=== PATIENT | female | born 1965 | race Caucasian/White ===

== ENCOUNTER 2018-02-07 16:33 | Emergency (ER) | payer OTHER ==
[~2018-02-07] VITALS: Ht 157.5 cm; Wt 72.6 kg
[~2018-02-07 16:33] MED LIST: FLEXERIL10 MG PO; PERCOCET 325 MG1 TA2 PO
[2018-02-07 17:06] LABS: ABSOLUTE BASOPHIL COUNT 0 /CUMM (0.0-0.2); ABSOLUTE EOSINOPHIL COUNT 0 /CUMM (0.0-0.7); ABSOLUTE GRANULOCYTE CT 21.1 /CUMM (1.4-6.5); ABSOLUTE LYMPH COUNT 1.4 /CUMM (1.2-3.4); ABSOLUTE MONOCYTE COUNT 0.5 /CUMM (0.10-0.60); BASOPHIL % 0.2 % (0.0-2.0); EOSINOPHIL % 0.1 % (0-5); GRANULOCYTE % 91.4 % (42.2-75.2); HEMATOCRIT 39.2 % (37-47); MEAN CORPUSCULAR HGB 29.5 PG (27.0-31.0); MEAN CORPUSCULAR HGB CONC 33.5 G/DL (33.0-37.0); MEAN CORPUSCULAR VOLUME 88.1 FL (81.0-99.0); PLATELET COUNT 303 /CUMM (130-400); RBC DISTRIBUTION WIDTH 14.3 % (11.5-14.5); RED BLOOD CELL CT 4.45 /CUMM (4.20-5.40); WHITE BLOOD CELL COUNT 23.1 /CUMM (4.8-10.8)
--- NOTE | 2018-02-07 18:01 | RADIOLOGY REPORT ---
EXAMINATION: XR CHEST CLINICAL INFORMATION: Fever and cough COMPARISON: Chest x-ray 04/13/2010 TECHNIQUE: 2 views of the chest were obtained. FINDINGS: Symmetric lung inflation. There is no focal consolidation, pleural effusion, or pneumothorax. Increased prominence of the interstitium with peribronchial thickening that can be seen in the setting of atypical/viral pneumonia. Cardiac silhouette size is normal. There are no acute osseous findings. Mild thoracic spondylosis. IMPRESSION: Increased prominence of the interstitium with peribronchial thickening that can be seen in the setting of atypical/viral pneumonia.
--- NOTE | 2018-02-07 18:42 | ED DYSPNEA/ASTHMA COMPLAINT ---
History of Present Illness General Chief Complaint: General Adult Stated Complaint: SENT IN BY MD FOR FEVER AND DEHYDRATION Source: patient Exam Limitations: no limitations Vital Signs & Intake/Output Vital Signs & Intake/Output Vital Signs Date Time Temp Pulse Resp B/P B/P Pulse O2 O2 Flow FiO2 Mean Ox Delivery Rate 02/07 2223 98.0 92 18 104/49 98 Room Air 02/07 2025 99.0 99 18 108/58 94 Room Air 02/07 2002 95 02/07 1833 98.8 102 20 100/47 94 Room Air 02/07 1648 101.3 02/07 1638 101.3 115 15 113/73 96 Room Air Room Air ED Intake and Output 02/08 0000 02/07 1200 Intake Total 2250 Output Total 0 Balance 2250 Intake, IV 2250 Intake, Oral 0 Output, Urine 0 Patient 160 lb Weight Weight Reported by Patient Measurement Method Allergies Coded Allergies: MDX - Erythromycin (ERYTHROMYCIN) (N/V ITCHING 02/07/18) Reconcile Medications Albuterol Sulfate (Proair Hfa) 90 MCG HFA.AER.AD 2 PUF INH Q4-6 PRN PRN COUIGH /SOB Codeine Phosphate/Guaifenesi (Cheratussin AC Syrup) 10 MG-100 MG/5 ML LIQUID 10 ML PO Q6H PRN COUGH CYCLOBENZAPRINE HCL (Flexeril) 10 MG TABLET 1 TAB PO TID PRN PAIN Ibuprofen 800 MG TABLET 1 TAB PO TID PRN PAIN/FEVER Levofloxacin (Levaquin) 750 MG TABLET 1 TAB PO DAILY PNA OXYCODONE HCL/ACETAMINOPHEN (Percocet 5-325 MG Tablet) 325 MG/5 MG TAB 1-2 TAB PO Q4-6 PRN PRN PAIN Triage Note: PT SENT TO ED BY DR. MIR FOR PNEUMONIA WORK UP. PT HAS BEEN SICK X 2 WEEKS. TESTED POSITIVE FOR STREP THROAT AT OFFICE. PRODUCTIVE COUGH WITH YELLOW/GREEN PHLEGM. Triage Nurses Notes Reviewed? yes Onset: Gradual Duration: week(s): (2), constant, continues in ED, getting worse Timing: single episode today Severity: moderate, severe Activities at Onset: none Prior Episodes/Possible Cause: occasional episodes Associated Symptoms: cough, wheezing, weakness LMP (ages 10-50): post menopausal, unknown : No Patient currently breastfeeds: No HPI: 52-year-old female past medical history of hyponatremia present for evaluation of cough, congestion, fever, sore throat and shortness of breath. Patient states symptoms started 2 weeks ago with the cough and have progressively gotten worse. She spiked a fever 2 days ago. She is not taking any Tylenol or ibuprofen. The cough is productive of yellow sputum worse at night causing difficult sleeping. She reports associated shortness of breath worse on exertion. No chest pain hemoptysis or lower extremity edema. No recent surgery recent trauma. No history of underlying lung disease including asthma or COPD. She is a former smoker. She does not have any inhalers at home. She states her is sick at home with similar symptoms. No nausea vomiting diarrhea dizziness lightheadedness. No rashes. (Woody Stevens) Past History Travel History Traveled to [place] past 21 day No Medical History Any Pertinent Medical History? see below for history Neurological: NONE EENT: NONE Cardiovascular: hyperlipidemia Respiratory: NONE Gastrointestinal: NONE Hepatic: NONE Renal: NONE Musculoskeletal: NONE Psychiatric: NONE Endocrine: NONE Blood Disorders: NONE Cancer(s): NONE TREASURY AGENT/Reproductive: NONE Surgical History Surgical History: non-contributory Psychosocial History What is your primary language Chinese Tobacco Use: Never used ETOH Use: denies use Illicit Drug Use: denies illicit drug use Family History Hx Contributory? No (Woody Stevens) Review of Systems Review of Systems Constitutional: Reports: fever, malaise, weakness. EENTM: Reports: nasal congestion, throat pain. Respiratory: Reports: see HPI, cough, short of breath, sputum production, wheezing. Cardiovascular: Reports: no symptoms. GI: Reports: no symptoms. Genitourinary: Reports: no symptoms. Musculoskeletal: Reports: see HPI, muscle pain, muscle stiffness. Skin: Reports: no symptoms. Neurological/Psychological: Reports: no symptoms. Hematologic/Endocrine: Reports: no symptoms. Immunologic/Allergic: Reports: no symptoms. All Other Systems: Reviewed and Negative (Woody Stevens) Physical Exam Physical Exam General Appearance: well developed/nourished, no apparent distress, alert, awake Head: atraumatic, normal appearance Eyes: Bilateral: normal appearance, PERRL, EOMI. Ears, Nose, Throat: normal pharynx, normal ENT inspection, hearing grossly normal Neck: normal inspection, supple, full range of motion Respiratory: chest non-tender, no respiratory distress, rhonchi, wheezing Cardiovascular: normal peripheral pulses, tachycardia (103) Peripheral Pulses: 2+ radial (R), 2+ radial (L) Gastrointestinal: normal bowel sounds, soft, non-tender, no organomegaly Extremities: normal inspection, normal range of motion, no edema Neurologic/Psych: no motor/sensory deficits, awake, alert, oriented x 3, normal gait Skin: intact, normal color, warm/dry Lymphatic: no anterior cervical marian Core Measures ACS in differential dx? No CVA/TIA Diagnosis No Sepsis Present: No Sepsis Focused Exam Completed? No (Khurram ROONEY,Woody) Progress Differential Diagnosis: asthma, bronchitis, CHF, COPD, musculoskeletal pain, pulmonary embolism, pneumonia, pneumothorax, unstable angina Plan of Care: Orders Procedure Date/time Status URINALYSIS 02/08 1920 Complete BLOOD CULTURE 02/07 1818 Active Add-on Test (ER Only) 02/08 1808 Active LACTIC ACID 02/07 1653 Complete RAPID VIRAL INFLUENZA A 02/07 1646 Complete COMPREHENSIVE METABOLIC PANEL 02/07 1646 Complete CBC WITHOUT DIFFERENTIAL 02/07 1646 Complete Laboratory Tests 02/07/182049: Urine Color YEL, Urine Clarity HAZY H, Urine pH 6.5, Ur Specific [place] 1.010, Urine Protein TRACE H, Urine Ketones NEG, Urine Nitrite NEG, Urine Bilirubin NEG, Urine Urobilinogen 0.2, Ur Leukocyte Esterase NEG, Ur Microscopic SEDIMENT EXAMINED, Urine RBC 1-3, Urine WBC 5-10 H, Ur Epithelial Cells FEW, Urine Hemoglobin MOD H, Urine Glucose NEG 02/07/181652: Anion Gap 14, Estimated GFR > 60, BUN/Creatinine Ratio 14.3, Glucose 108 H, Lactic Acid 1.0, Calcium 9.5, Total Bilirubin 0.5, AST 27, ALT 36, Alkaline Phosphatase 80, Total Protein 7.6, Albumin 4.5, Globulin 3.1, Albumin/Globulin Ratio 1.5, CBC w Diff MAN DIFF ORDERED, RBC 4.45, MCV 88.1, MCH 29.5, MCHC 33.5, RDW 14.3, MPV 9.0, Gran % 91.4 H, Lymphocytes % 5.9 L, Monocytes % 2.4, Eosinophils % 0.1, Basophils % 0.2, Absolute Granulocytes 21.1 H, Segmented Neutrophils 86 H, Band Neutrophils 3, Absolute Lymphocytes 1.4, Lymphocytes 10 L, Monocytes 1 L, Absolute Monocytes 0.5, Absolute Eosinophils 0, Absolute Basophils 0, Platelet Estimate ADEQUATE, Normocytic RBCs VERIFIED, Normochromic RBCs VERIFIED, Fld Total RBCs Counted 100 Microbiology 02/07 1938 BLOOD: Blood Culture - RECD 02/08 1848 BLOOD: Blood Culture - RECD 02/07 165 NASOPHARYN: Influenza Virus A & B Rapid Smear - COMP Patient seen and evaluated. On initial evaluation she has a temp of 101. No signs of hypoxia. On exam she has bilateral wheezing and rhonchi. No respiratory distress. DuoNeb, Toradol IV fluids ordered. Basic blood work ordered from triage shows a white blood cell count of 22,000 with left shift. And chest x-ray shows possible atypical pneumonia. Waiting blood work is within normal limits. We'll check a CTA of the chest to further characterize pneumonia and rule out PE. We'll continue to monitor patient and reevaluate. Patient reports an improvement after DuoNeb. On reevaluation of her lungs she is clear to auscultation. CTA is negative for PE and does not show any signs of pneumonia however with significant elevated white blood cell count and findings on chest x-ray patient will be treated for community acquired pneumonia. She was given a dose of ceftriaxone and Zithromax here. sHe was also given another liter of fluid. Patient was a related in the emergency department and did not desaturate or become visibly dyspneic. She maintained an oxygen saturation of 95%. pna severity index class II indicating outpatient treatment is reasonable. Patient will be discharged home with a prescription for Levaquin. She is also given pro-air inhaler, Cheratussin and ibuprofen. Advised to rest drink plenty of fluids. Alternate Tylenol and ibuprofen. Follow up with primary care doctor for recheck. Discussed return precautions in detail. Case discussed with Dr. Crespo he agrees. Diagnostic Imaging: Viewed by Me: Radiology Read. Discussed w/RAD: Radiology Read. Radiology Impression: PATIENT: TYRON GLASS PRESENT AGE: 52 PATIENT ACCOUNT NO: [id number] : 64 LOCATION: [facility] ORDERING PHYSICIAN: Woody ROONEY SERVICE DATE: 02/07/18 EXAM TYPE: CAT - CTA CHEST-PULMONARY EMBOLISM EXAMINATION: CT ANGIOGRAM OF THE CHEST WITH AND WITHOUT CONTRAST (CT PULMONARY ANGIOGRAM FOR PE) CLINICAL INFORMATION: Reason for Study:
Presumptive Dx: PNA PE
Signs Symptoms: CHEST PAIN SOB FEVER COUGH
COMPARISON: None TECHNIQUE: Prior to contrast administration, noncontrast localization images were obtained. Subsequently, multidetector volumetric imaging was performed from the thoracic inlet to below the diaphragms following the administration of 95 mL Optiray 320 intravenous contrast. No contrast reaction reported. Sagittal, coronal, and MIP oblique sagittal reformatted images were obtained on the CT workstation, uploaded to PACS, and reviewed. Total exam dose-length product 384 mGy-cm. FINDINGS: QUALITY OF STUDY/ CONTRAST BOLUS: Satisfactory PULMONARY ARTERIES: No central or segmental pulmonary emboli. THORACIC AORTA: No aneurysm or dissection. LUNG: No focal consolidation, nodules or masses. PLEURA: No pleural effusion or pneumothorax. MEDIASTINUM: Normal heart size. No pericardial effusion. No hilar or mediastinal lymphadenopathy. No evidence of septal bowing or right heart strain. CHEST WALL/ AXILLA: No axillary or internal mammary lymphadenopathy. OSSEOUS STRUCTURES: No acute or suspicious osseous abnormality. UPPER ABDOMEN: Unremarkable. No reflux of contrast into the hepatic veins to suggest elevated right heart pressures. IMPRESSION: Normal study. No pulmonary embolus. VTE: negative DICTATED BY: Jose Dukes MD DATE/TIME DICTATED:02/07/182007 MACHINE SNELLER: ALEJANDRA DATE/TIME TRANSCRIBED:02/07/182007 CONFIDENTIAL, DO NOT COPY WITHOUT APPROPRIATE AUTHORIZATION. <Electronically signed in Other Vendor System> SIGNED BY: Jose Dukes MD 02/07/182015 CXR Impression: PATIENT: TYRON GLASS PRESENT AGE: 52 PATIENT ACCOUNT NO: [id number] : 64 LOCATION: [facility] ORDERING PHYSICIAN: Angel Carpio MD SERVICE DATE: 02/07/18 EXAM TYPE: RAD - XRY-CHEST XRAY, TWO VIEWS EXAMINATION: XR CHEST CLINICAL INFORMATION: Fever and cough COMPARISON: Chest x-ray 04/13/2010 TECHNIQUE: 2 views of the chest were obtained. FINDINGS: Symmetric lung inflation. There is no focal consolidation, pleural effusion, or pneumothorax. Increased prominence of the interstitium with peribronchial thickening that can be seen in the setting of atypical/viral pneumonia. Cardiac silhouette size is normal. There are no acute osseous findings. Mild thoracic spondylosis. IMPRESSION: Increased prominence of the interstitium with peribronchial thickening that can be seen in the setting of atypical/viral pneumonia. DICTATED BY: Angel Reinoso MD DATE/TIME DICTATED:1756 MACHINE SNELLER:ALEJANDRA DATE/TIME TRANSCRIBED:02/07/181756 CONFIDENTIAL, DO NOT COPY WITHOUT APPROPRIATE AUTHORIZATION. <Electronically signed in Other Vendor System> Initial ED EKG: none (Woody Stevens) Departure Departure Disposition: HOME OR SELF CARE Condition: Stable Clinical Impression Primary Impression: Pneumonia Qualifiers: Pneumonia type: due to unspecified organism Laterality: bilateral Lung location: unspecified part of lung Qualified Code: J18.9 - Pneumonia, unspecified organism Referrals: Hyacinth SURESH,Gaby Mosquera (PCP/Family) Additional Instructions: Rest, take antibiotics as directed for the full course. Use pro-air inhaler 2 puffs every 4-6 hours as needed. Cheratussin for cough. TYLENOL and ibuprofen as needed for pain or fevers. Make a follow-up appointment with YOUr primary care doctor for recheck this week. Monitor symptoms closely return with any concerns. Departure Forms: Customer Survey General Discharge Information Prescriptions: Current Visit Scripts Levofloxacin (Levaquin) 1 TAB PO DAILY #10 TAB Albuterol Sulfate (Proair Hfa) 2 PUF INH Q4-6 PRN PRN COUIGH/SOB #1 INHAL Codeine Phosphate/Guaifenesi (Cheratussin AC Syrup) 10 ML PO Q6H PRN COUGH #240 ML Ibuprofen 1 TAB PO TID PRN PAIN/FEVER #30 TAB (Woody Stevens) PA/DIGITAL SALES MANAGER Co-Sign Statement Statement: ED Attending supervision documentation- [] I saw and evaluated the patient. I have also reviewed all the pertinent lab results and diagnostic results. I agree with the findings and the plan of care as documented in the PA's/DIGITAL SALES MANAGER's documentation. [x] I have reviewed the ED Record and agree with the PA's/DIGITAL SALES MANAGER's documentation. [] Additions or exceptions (if any) to the PAs/DIGITAL SALES MANAGER's note and plan are summarized below: [] (Cherie SURESH,Bo Diaz) Critical Care Note Critical Care Note Critical Care Time: non-applicable (Woody Stevens)
--- NOTE | 2018-02-07 20:16 | CT SCAN REPORT ---
EXAMINATION: CT ANGIOGRAM OF THE CHEST WITH AND WITHOUT CONTRAST (CT PULMONARY ANGIOGRAM FOR PE) CLINICAL INFORMATION: Reason for Study:
Presumptive Dx: PNA PE
Signs Symptoms: CHEST PAIN SOB FEVER COUGH
COMPARISON: None TECHNIQUE: Prior to contrast administration, noncontrast localization images were obtained. Subsequently, multidetector volumetric imaging was performed from the thoracic inlet to below the diaphragms following the administration of 95 mL Optiray 320 intravenous contrast. No contrast reaction reported. Sagittal, coronal, and MIP oblique sagittal reformatted images were obtained on the CT workstation, uploaded to PACS, and reviewed. Total exam dose-length product 384 mGy-cm. FINDINGS: QUALITY OF STUDY/CONTRAST BOLUS: Satisfactory PULMONARY ARTERIES: No central or segmental pulmonary emboli. THORACIC AORTA: No aneurysm or dissection. LUNG: No focal consolidation, nodules or masses. PLEURA: No pleural effusion or pneumothorax. MEDIASTINUM: Normal heart size. No pericardial effusion. No hilar or mediastinal lymphadenopathy. No evidence of septal bowing or right heart strain. CHEST WALL/AXILLA: No axillary or internal mammary lymphadenopathy. OSSEOUS STRUCTURES: No acute or suspicious osseous abnormality. UPPER ABDOMEN: Unremarkable. No reflux of contrast into the hepatic veins to suggest elevated right heart pressures. IMPRESSION: Normal study. No pulmonary embolus. VTE: negative
[2018-02-07] MEDS ORDERED: LEVAQUIN750 M1 PO (22:09)
[2018-02-07] MEDS ORDERED: PROAIR HFA8.5 GM INH (22:09)
[2018-02-07] MEDS ORDERED: IBUPROFEN800 M1 PO (22:09)
[2018-02-07] MEDS ORDERED: CHERATUSSIN AC118 M1 PO (22:09)
[2018-02-07 22:23] VITALS: BP 104/49
== END 2018-02-07 22:49 ==
LOC: ERH 16:33
PROVIDERS: Emergency Medicine
DX: J18.9 Pneumonia, unspecified organism (principal); Z87.891 Personal history of nicotine dependence
CPT/HCPCS: 1263; 71046; 81001; 87040; 87804; 87804-59; 96361; 96365; 96366; 96375; J0456; J0696; J1885; J7040